=== PATIENT | female | born 1985 | race Caucasian/White ===

== ENCOUNTER 2017-01-22 16:51 | Outpatient (CLI) | payer BC ==
[~2017-01-22] VITALS: Ht 162.6 cm; Wt 65.9 kg
[~2017-01-22 16:51] MED LIST: CYTOTEC200 MCG PO; DOXYCYCLINE HY100 M3 PO; ENDOCET 5-3251 EACH PO; METHERGINE0.2 MG PO; MOTRIN800 MG PO; NATALCARE RX1 TABLE1 PO
[2017-01-22 17:18] VITALS: BP 125/88
[2017-01-22] MEDS ORDERED: PRENATAL TABLE1 EAC3 PO (17:58)
[2017-01-22] MEDS ORDERED: HEPARIN SO5000 UNIT3 SC (17:58)
[2017-01-22 18:12] VITALS: BP 122/70
[2017-01-23] MEDS ORDERED: IBUPROFEN800 MG PO (17:15)
== END 2017-01-22 18:30 | disposition home or self-care (01) ==
LOC: LDRP-OP 16:51 → 2WEST 16:54 → LDRP-OP 03-01 08:01
DX: O47.1 False labor at or after 37 completed weeks of gestation (principal); Z3A.38 38 weeks gestation of pregnancy
CPT/HCPCS: 59025; C1755; G0378

== ENCOUNTER 2017-01-23 07:27 | Inpatient (IN) | payer BC ==
[2017-01-23] VITALS (23 sets, daily range): BP systolic 114–147; BP diastolic 72–99
[~2017-01-23 07:27] MED LIST changes: +HEPARIN SO5000 UNIT3 SC; +PRENATAL TABLE1 EAC3 PO
[2017-01-23 09:22] LABS: EOSINOPHIL COUNT 0.1 K/uL (0-0.3); HEMATOCRIT 29.1 % (36.0-46.0); IMMATURE GRANULOCYTE (%) 1.3 % (0.0-0.7); IMMATURE GRANULOCYTE COUNT 0.1 K/uL; INSTRUMENT ABS NEUTROPHIL CT 6.9 K/uL; LYMPHOCYTE COUNT 2.4 K/uL (1.0-2.8); MCH 23.5 PG (29.0-34.0); MCHC 30.2 G/DL (30.0-36.0); MCV 77.8 FL (83-99); MONOCYTE (%) 9.1 % (3-12); NEUTROPHIL (%) 65.7 % (45-76); NEUTROPHIL COUNT 6.9 K/uL (1.8-6.4); NRBC (%) 0.3 /100 WBC (0-0); PLATELET COUNT 244 K/uL (156-360); RBC DIS.WIDTH-CV 16.7 % (11.8-14.6); RBC DIS.WIDTH-SD 46.5 % (39-53); RED BLOOD COUNT 3.74 M/uL (3.80-5.20); WHITE BLOOD COUNT 10.6 K/uL (4.1-10.2)
[2017-01-23] MEDS ORDERED: IBUPROFEN800 MG PO (17:15)
[2017-01-24 07:15] VITALS: BP 150/85
[2017-01-24 10:15] VITALS: BP 129/83
[2017-01-24 15:19] VITALS: BP 142/82
== END 2017-01-24 20:30 | disposition home or self-care (01) | DRG 775 ==
LOC: LDRP-OP 07:27 → 2WEST 07:28 → LDRP-OP 03-01 18:38
PROVIDERS: Midwife
PROC: 3E0S3CZ (ICD-10-PCS; principal; 2017-01-23)
PROC: 3E033VJ Introduction of Other Hormone into Peripheral Vein, Percutaneous Approach (ICD-10-PCS; principal; 2017-01-23)
PROC: 10E0XZZ Delivery of Products of Conception, External Approach (ICD-10-PCS; principal; 2017-01-23)
PROC: 10907ZC Drainage of Amniotic Fluid, Therapeutic from Products of Conception, Via Natural or Artificial Opening (ICD-10-PCS; principal; 2017-01-23)
PROC: 00HU33Z Insertion of Infusion Device into Spinal Canal, Percutaneous Approach (ICD-10-PCS; principal; 2017-01-23)
DX: O26.893 Other specified pregnancy related conditions, third trimester (principal); O99.12 Other diseases of the blood and blood-forming organs and certain disorders involving the immune mechanism complicating childbirth; D68.51 Activated protein C resistance; O26.23 Pregnancy care for patient with recurrent pregnancy loss, third trimester; N96 Recurrent pregnancy loss; O69.82X0 Labor and delivery complicated by other cord entanglement, without compression, not applicable or unspecified; Z3A.39 39 weeks gestation of pregnancy; Z37.0 Single live birth
CPT/HCPCS: 85025; C1755; J1650; J3010; J7120